=== PATIENT | female | born 1960 | race Caucasian/White ===

== ENCOUNTER 2018-05-14 11:27 | Emergency (ER) | payer MEDICAID, OTHER ==
[~2018-05-14] VITALS: Ht 175.3 cm; Wt 95.3 kg
[2018-05-14 11:35] VITALS: BP 120/55
== END 2018-05-14 12:13 | disposition left against medical advice (07) ==
LOC: ER 11:28
DX: R07.9 Chest pain, unspecified (principal); Z53.21 Procedure and treatment not carried out due to patient leaving prior to being seen by health care provider